=== PATIENT | male | born 1995 | race African-American/Black ===

== ENCOUNTER 2019-06-12 22:51 | Emergency (ER) | payer OTHER ==
[~2019-06-12] VITALS: Ht 185.4 cm; Wt 83.5 kg
[~2019-06-12 22:51] MED LIST: AMOXICILLIN500 MG PO; BACTRIM DS TAB1 EACH PO; CEPHALEXIN500 MG PO; NAPROXEN500 MG PO; NORCO 5-325 TA1 EACH PO; PENICILLIN V P500 MG PO; TRAMADOL HCL50 MG PO
--- OUTSIDE RECORDS SUMMARY | 2019-06-12 22:54 | XMS ---
PreManage Notification: JESSICA HORTA Security Hand Picker Events No recent Security Events currently on file CRITERIA MET - Group Notification CARE PROVIDERS There are no care providers on record at this time. Marina has no Care Guidelines for this patient. Katerina VISIT COUNT (12 MO.) 1 DI[facility]NE Ritter TOTAL 1 NOTE: Visits indicate total known visits. ED/C VISIT TRACKING (12 MO.) 06/12/2019 22:51 [facility] [place] TYPE: Emergency COMPLAINT: - DENTAL PAIN INPATIENT VISIT TRACKING (12 MO.) No inpatient visits to display in this time frame [id number]
[2019-06-12] MEDS ORDERED: PENICILLIN V P500 MG PO (23:09)
== END 2019-06-12 23:26 | disposition home or self-care (01) ==
LOC: ED 22:51
DX: K04.7 Periapical abscess without sinus (principal)
CPT/HCPCS: 99282

== ENCOUNTER 2019-06-15 13:49 | Emergency (ER) | payer OTHER ==
[~2019-06-15] VITALS: Ht 185.4 cm; Wt 83.5 kg
--- OUTSIDE RECORDS SUMMARY | 2019-06-15 13:52 | XMS ---
PreManage Notification: JESSICA HORTA Security Senior Audit Manager Events No recent Security Events currently on file CRITERIA MET - [facility] - 2 Visits in 30 Days CARE PROVIDERS There are no care providers on record at this time. Marina has no Care Guidelines for this patient. [facility]: Visits indicate total known visits. ED/C VISIT TRACKING (12 MO.) 06/15/2019 13:49 [facility] [place] TYPE: Emergency COMPLAINT: - PAIN 06/12/2019 22:51 [facility] [place] TYPE: Emergency COMPLAINT: - DENTAL PAIN INPATIENT VISIT TRACKING (12 MO.) No inpatient visits to display in this time frame [id number]
== END 2019-06-15 16:02 | disposition home or self-care (01) ==
LOC: ED 13:49
DX: K02.9 Dental caries, unspecified (principal)
CPT/HCPCS: 99282; A9270

== ENCOUNTER 2019-07-04 11:42 | Emergency (ER) | payer OTHER ==
[~2019-07-04] VITALS: Ht 185.4 cm; Wt 83.5 kg
--- OUTSIDE RECORDS SUMMARY | 2019-07-04 11:44 | XMS ---
PreManage Notification: JESSICA HORTA Security Bridge Ironworker Events No recent Security Events currently on file CRITERIA MET - Group Notification - [facility] - Has Care Guidelines - [facility] - 2 Visits in 30 Days CARE PROVIDERS RICHARD SERNA Nurse Practitioner: 06/17/2019-Current PHONE: [phone] Marina has no Care Guidelines for this patient. Care History Medical/Surgical 06/17/2019 [facility] - Patient is currently established with [facility]. If patient is seen in the ED during business hours. Please contact CHWs at [facility]. Care Recommendation: If this patient has had 5 or more Emergency Department visits in the last 12 months.\T\nbsp; Patient will require education on the scope and purpose of the ED as an acute care provider not a Primary Care Provider and should not be utilized for chronic conditions.\T\nbsp; These are guidelines and the provider should exercise clinical judgment when providing care. E.D. VISIT COUNT (12 MO.) 3 [facility] TOTAL 3 NOTE: Visits indicate total known visits. ED/UCC VISIT TRACKING (12 MO.) 07/04/2019 11:42 [facility] [place] TYPE: Emergency COMPLAINT: - DENTAL PAIN 06/15/2019 13:49 [facility] [place] TYPE: Emergency COMPLAINT: - PAIN DIAGNOSES: - Other specified disorders of teeth and supporting structures - Dental caries, unspecified 06/12/2019 22:[address] [facility] [place] TYPE: Emergency COMPLAINT: - DENTAL PAIN DIAGNOSES: - Periapical abscess without sinus - Other specified disorders of teeth and supporting structures INPATIENT VISIT TRACKING (12 MO.) No inpatient visits to display in this time frame [id number]
[2019-07-04] MEDS ORDERED: PENICILLIN V P500 MG PO (12:17)
== END 2019-07-04 12:35 | disposition home or self-care (01) ==
LOC: ED 11:42
DX: K04.7 Periapical abscess without sinus (principal); F17.200 Nicotine dependence, unspecified, uncomplicated
CPT/HCPCS: 99282

== ENCOUNTER 2019-08-11 01:16 | Emergency (ER) | payer OTHER ==
--- OUTSIDE RECORDS SUMMARY | 2019-08-11 01:18 | XMS ---
PreManage Notification: JESSICA HORTA Security Sandwich Machine Operator Events No recent Security Events currently on file CRITERIA MET - Group Notification - [facility] - Has Care Guidelines CARE PROVIDERS RICHARD SERNA Nurse Practitioner: 06/17/2019-Current PHONE: [phone] Marina has no Care Guidelines for this patient. Care History Medical/Surgical 06/17/2019 [facility] - Patient is currently established with [facility]. If patient is seen in the ED during business hours. Please contact CHWs at [facility]. Care Recommendation: If this patient has had [...] providing care. E.D. VISIT COUNT (12 MO.) 4 [facility] TOTAL 4 NOTE: Visits indicate total known visits. ED/C VISIT TRACKING (12 MO.) 08/11/2019 01:16 [facility] [place] TYPE: Emergency COMPLAINT: - MOUTH PAIN 07/04/2019 11:42 [facility] [place] TYPE: Emergency COMPLAINT: - DENTAL PAIN DIAGNOSES: - Periapical abscess without sinus - Nicotine dependence, unspecified, uncomplicated - Other specified disorders of teeth and supporting structures 06/15/2019 13:49 [facility] [place] TYPE: Emergency COMPLAINT: - PAIN DIAGNOSES: - Other specified disorders of teeth and supporting structures - Dental caries, unspecified 06/12/2019 22:51 [facility] [place] TYPE: Emergency COMPLAINT: - DENTAL PAIN DIAGNOSES: - Periapical abscess without sinus - Other specified disorders of teeth and supporting structures INPATIENT VISIT TRACKING (12 MO.) No inpatient visits to display in this time frame [id number]
== END 2019-08-11 01:33 | disposition left against medical advice (07) ==
LOC: ED 01:16
DX: Z53.21 Procedure and treatment not carried out due to patient leaving prior to being seen by health care provider (principal)

== ENCOUNTER 2021-03-19 13:14 | Emergency (ER) | payer OTHER ==
[~2021-03-19] VITALS: Ht 185.4 cm; Wt 83.5 kg
--- OUTSIDE RECORDS SUMMARY | 2021-03-19 13:22 | XMS ---
PreManage Notification: JESSICA HORTA Security Special Education Resource Room Teacher Events No recent Security Events currently on file CRITERIA MET - Group Notification CARE PROVIDERS RICHARD SERNA Nurse Practitioner: 06/17/2019-Current PHONE: [phone] Marina has no Care Guidelines for this patient. Care History Medical/Surgical 06/17/2019 [facility] - Patient is currently established with [facility]. If patient is seen in the ED during business hours. Please contact CHWs at [facility]. Care Recommendation: If this patient has [...] providing care. E.D. VISIT COUNT (12 MO.) 2 Idris Hutchison 1 [facility] TOTAL 3 NOTE: Visits indicate total known visits. ED/UCC VISIT TRACKING (12 MO.) 03/19/2021 13:15 [facility] [place] TYPE: Emergency COMPLAINT: - EXTREME BACK LEG PAIN 01/23/2021 00:36 [facility] [place] TYPE: Emergency DIAGNOSES: - Dental pain - Dental caries, unspecified - Other specified disorders of teeth and supporting structures - Fracture of tooth (traumatic), initial encounter for open fracture 12/26/2020 20:53 [facility] [place] TYPE: Emergency DIAGNOSES: - Cough - Runny Nose - Runny Nose outside [employer] - Acute upper respiratory infection, unspecified INPATIENT VISIT TRACKING (12 MO.) No inpatient visits to display in this time frame [id number]
[2021-03-19] MEDS ORDERED: PREDNISONE20 MG PO (15:02)
[2021-03-19] MEDS ORDERED: HYDROCODON-ACE1 EA11 PO (15:02)
== END 2021-03-19 15:10 | disposition home or self-care (01) ==
LOC: ED 13:14
DX: M54.42 Lumbago with sciatica, left side (principal); F17.200 Nicotine dependence, unspecified, uncomplicated
CPT/HCPCS: 96372; 99283; A9270; J1885; J7512

== ENCOUNTER 2021-05-11 17:50 | Emergency (ER) | payer OTHER ==
[~2021-05-11] VITALS: Ht 188 cm; Wt 86.2 kg
[~2021-05-11 17:50] MED LIST changes: +HYDROCODON-ACE1 EA11 PO; +PREDNISONE20 MG PO
--- OUTSIDE RECORDS SUMMARY | 2021-05-11 17:52 | XMS ---
PreManage Notification: JESSICA HORTA Security Grass Farmer Events No recent Security Events currently on file CRITERIA MET - Group Notification - PDMP CARE PROVIDERS RICHARD SERNA Nurse Practitioner: 06/17/2019-Current PHONE: Unknown Marina has no Care Guidelines for this patient. Care History Medical/Surgical 06/17/2019 [facility] - Patient is currently established with [facility]. If patient is seen in the ED during business hours. Please contact CHWs at [facility]. Care Recommendation: If this patient has had [...] care. E.D. VISIT COUNT (12 MO.) 2 Alan Hutchison 2 [facility] TOTAL 4 NOTE: Visits indicate total known visits. ED/C VISIT TRACKING (12 MO.) 05/11/2021 17:[address] [facility] [place] TYPE: Emergency COMPLAINT: - LT FINGER INJURY 03/19/2021 13:[address] [facility] [place] TYPE: Emergency COMPLAINT: - EXTREME BACK LEG PAIN DIAGNOSES: - LOW BACK PAIN, UNSPECIFIED - Nicotine dependence, unspecified, uncomplicated - Lumbago with sciatica, left side 01/23/2021 00:36 [facility] [place] TYPE: Emergency DIAGNOSES: - Dental pain - Dental caries, unspecified - Other specified disorders of teeth and supporting structures - Fracture of tooth (traumatic), initial encounter for open fracture 12/26/2020 20:53 [facility] [place] TYPE: Emergency DIAGNOSES: - Cough - Runny Nose - Runny Nose outside [place] [employer] - Acute upper respiratory infection, unspecified INPATIENT VISIT TRACKING (12 MO.) No inpatient visits to display in this time frame [id number]
[2021-05-11] MEDS ORDERED: TYLENOL EXTRA500 MG PO (19:59)
[2021-05-11] MEDS ORDERED: IBU800 MG PO (19:59)
== END 2021-05-11 20:08 | disposition home or self-care (01) ==
LOC: ED 17:50
DX: S63.613A Unspecified sprain of left middle finger, initial encounter (principal); W22.8XXA Striking against or struck by other objects, initial encounter; F17.200 Nicotine dependence, unspecified, uncomplicated
CPT/HCPCS: 73140; 99283-25; A9270

== ENCOUNTER 2022-02-05 14:57 | Emergency (ER) | payer OTHER ==
[~2022-02-05] VITALS: Ht 182.9 cm; Wt 84.4 kg
[~2022-02-05 14:57] MED LIST changes: +HYDROCODON-ACE1 EA10 PO; +IBU800 MG PO; +TYLENOL EXTRA500 MG PO
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
== END 2022-02-05 16:30 | disposition home or self-care (01) ==
LOC: ED 14:57
DX: S62.660A Nondisplaced fracture of distal phalanx of right index finger, initial encounter for closed fracture (principal); S66.310A Strain of extensor muscle, fascia and tendon of right index finger at wrist and hand level, initial encounter; W22.8XXA Striking against or struck by other objects, initial encounter; F17.200 Nicotine dependence, unspecified, uncomplicated; Z88.5 Allergy status to narcotic agent; M20.011 Mallet finger of right finger(s)
CPT/HCPCS: 73140; 99283-25

== ENCOUNTER 2024-05-29 00:14 | Emergency (ER) | payer MEDICAID ==
[~2024-05-29] VITALS: Ht 188 cm; Wt 79.8 kg
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
[2024-05-29] MEDS ORDERED: KETOROLAC TROMETHAMINE 60 MG/2 ML VIAL IM ONE (00:30)
[2024-05-29 02:23] VITALS: BP 131/75
== END 2024-05-29 02:24 | disposition home or self-care (01) ==
LOC: ED 00:14
DX: S53.402A Unspecified sprain of left elbow, initial encounter (principal); S83.91XA Sprain of unspecified site of right knee, initial encounter; Y04.0XXA Assault by unarmed brawl or fight, initial encounter; F17.200 Nicotine dependence, unspecified, uncomplicated; Z88.5 Allergy status to narcotic agent
CPT/HCPCS: 70450; 70486; 72125; 73080; 73560; 99284-25

== ENCOUNTER 2024-08-19 13:29 | Emergency (ER) | payer OTHER, MEDICAID ==
[~2024-08-19] VITALS: Ht 188 cm; Wt 80.0 kg
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
[2024-08-19 16:00] VITALS: BP 145/88
== END 2024-08-19 16:00 | disposition home or self-care (01) ==
LOC: ED 13:29
DX: S63.112A Subluxation of metacarpophalangeal joint of left thumb, initial encounter (principal); F17.200 Nicotine dependence, unspecified, uncomplicated; W22.09XA Striking against other stationary object, initial encounter; Z88.5 Allergy status to narcotic agent
CPT/HCPCS: 73140; 99283

== ENCOUNTER 2024-11-16 09:27 | Emergency (ER) | payer OTHER ==
[~2024-11-16] VITALS: Ht 188 cm; Wt 89.0 kg
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
[2024-11-16] MEDS ORDERED: ARTHRITIS PAIN150 G1 TOP (09:44)
[2024-11-16] MEDS ORDERED: IBUPROFEN 400 MG TAB PO ONE (09:45)
[2024-11-16] MEDS ORDERED: CYCLOBENZAPRINE HCL 10 MG TAB PO ONE (09:45)
[2024-11-16] MEDS ORDERED: HYDROCODONE/ACETA 7.5/325 TAB PO ONE (09:45)
[2024-11-16] MEDS ORDERED: HYDROCODON-ACE1 EA11 PO (09:53)
[2024-11-16] MEDS ORDERED: CYCLOBENZAPRINE10 MG PO (09:53)
[2024-11-16 10:15] VITALS: BP 146/78
== END 2024-11-16 10:15 | disposition home or self-care (01) ==
LOC: ED 09:27
DX: S16.1XXA Strain of muscle, fascia and tendon at neck level, initial encounter (principal); F17.200 Nicotine dependence, unspecified, uncomplicated; X58.XXXA Exposure to other specified factors, initial encounter
CPT/HCPCS: 99283; A9270

== ENCOUNTER 2024-11-19 13:48 | Emergency (ER) | payer OTHER ==
[~2024-11-19] VITALS: Ht 188 cm; Wt 92.6 kg
[~2024-11-19 13:48] MED LIST changes: +ARTHRITIS PAIN150 G1 TOP; +CYCLOBENZAPRINE10 MG PO
--- OUTSIDE RECORDS SUMMARY | 2024-11-19 13:50 | XMS ---
PreManage Notification: JESSICA HORTA Security Web Press Roll Tender Events No recent Security Events currently on file CRITERIA MET - Group Notification - [facility] - 2 Visits in 30 Days CARE PROVIDERS -, [facility]ist: Screening Technician Current [place] PHONE: [phone] Marina has no Care Guidelines for this patient. Care History Medical/Surgical 05/16/2021 [facility] \R\- NO PCP LETTER SENT WITH CLINIC LIST LULÚ. Katerina VISIT COUNT (12 MO.) 4 [facility]. TOTAL 4 NOTE: Visits indicate total known visits. ED/C VISIT TRACKING (12 MO.) 11/19/2024 13:49 [facility] [place] TYPE: Emergency COMPLAINT: - NECK PAIN 11/16/2024 09:28 [facility] [place] TYPE: Emergency COMPLAINT: - RT SIDE NECK PAIN DIAGNOSES: - Exposure to other specified factors, initial encounter - Nicotine dependence, unspecified, uncomplicated - Pain in thoracic spine - Strain of muscle, fascia and tendon at neck level, initial encounter 08/19/2024 13:29 [facility] [place] TYPE: Emergency [...] visits to display in this time frame [id number]
[2024-11-19] MEDS ORDERED: KETOROLAC TROMETHAMINE 15 MG/ML VIAL IM ONE (17:00)
[2024-11-19 18:30] VITALS: BP 142/97
[2024-11-19] MEDS ORDERED: LIDODERM1 EACH TOP (18:40)
[2024-11-19] MEDS ORDERED: NAPROSYN500 MG PO (18:40)
[2024-11-19] MEDS ORDERED: CYCLOBENZAPRINE10 MG PO (18:40)
== END 2024-11-19 18:42 | disposition home or self-care (01) ==
LOC: ED 13:48
DX: S16.1XXA Strain of muscle, fascia and tendon at neck level, initial encounter (principal); S29.012A Strain of muscle and tendon of back wall of thorax, initial encounter; F17.200 Nicotine dependence, unspecified, uncomplicated; W21.05XA Struck by basketball, initial encounter; Z79.899 Other long term (current) drug therapy
CPT/HCPCS: 72040; 96372; 99283; J1885